=== PATIENT | female | born 1995 | race Caucasian/White ===

== ENCOUNTER 2020-08-11 16:27 | Emergency (ER) | payer BC, SELFPAY ==
--- NOTE | ~2020-08-11 | XR_ITS ---
EXAMINATION: XR ankle LT 2V DATE: 08/11/2020 17:04 INDICATION: Lateral left ankle swelling post injury TECHNIQUE: Anteroposterior and lateral views of the left ankle were obtained. COMPARISON: None. FINDINGS: Alignment is normal. No fracture. Joint spaces are well maintained. No ankle joint effusion. The so ft tissues are unremarkable. IMPRESSION: 1. . Negative left ankle radiographs. Reviewed, dictated and finalized at location [facility]. [employer]
[2020-08-11 16:32] VITALS: BP 150/89; PULSE 115; RESP 18; TEMP 36.3; O2SAT 100
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
--- NOTE | 2020-08-11 17:18 | PC.NURSE ---
xray done. waiting for final result. patient continues to ask for ice water. mother in room. advised to wait for results and .
--- NOTE | 2020-08-11 17:38 | PC.NURSE ---
resting on stretcher. xray (-) negative for fracture.
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
[2020-08-11 18:48] VITALS: BP 135/89; PULSE 90; RESP 18; TEMP 36.7; O2SAT 100
== END 2020-08-11 18:53 | disposition home or self-care (01) ==
LOC: ANHED 18:33
PROVIDERS: Emergency Provider Emergency Medicine
DX: S93.402A Sprain of unspecified ligament of left ankle, initial encounter (principal); S96.912A Strain of unspecified muscle and tendon at ankle and foot level, left foot, initial encounter; S90.512A Abrasion, left ankle, initial encounter; V48.4XXA Person boarding or alighting a car injured in noncollision transport accident, initial encounter
CPT/HCPCS: 73600; 99283

== ENCOUNTER 2023-01-23 08:23 | Emergency (ER) | payer OTHER, SELFPAY ==
[2023-01-23 08:34] VITALS: BP 139/83; PULSE 100; RESP 18; TEMP 36.9; O2SAT 99
--- NOTE | 2023-01-23 08:36 | ED.GENADULT ---
HPI - General Adult General Chief complaint: Upper Respiratory Infection Stated complaint: Sore Throat,Cough,Runny Nose Time Seen by Provider: 01/23/23 08:37 Source: patient Mode of arrival: ambulatory Limitations: no limitations History of Present Illness HPI narrative: 27-year-old female patient presents to the [facility] with complaints of cold symptoms for the past 2 days. Patient states she has had runny nose, nonproductive cough, stuffy nose and sore throat. Denies fevers, body aches or chills. Denies any abdominal pain, nausea, vomiting or diarrhea. Patient denies taking any new [id number] medications for her symptoms since they have started. Related Data Home Medications Medication Instructions Recorded Confirmed No Home Medications 01/23/23 01/23/23 Allergies Allergy/AdvReac Type Severity Reaction Status Date / Time No Known Allergies Allergy Verified 01/23/23 08:25 Review of Systems Review of Systems: CONSTITUTIONAL: Denies fever, chills, or sweats. EYES: Denies visual changes, redness, or discharge. ENT: Positive rhinorrhea, congestion, positive sore throat, negative otalgia. CARDIOVASCULAR: Denies chest pain, palpitations, or edema. RESPIRATORY: positive cough , denies dyspnea. GASTROINTESTINAL: Denies abdominal pain, nausea, vomiting, or diarrhea. GENITOURINARY: Denies dysuria or hematuria. SKIN: Denies rash or itching. MUSCULOSKELETAL: Denies back pain, joint pain, or myalgia. NEUROLOGIC: Denies headache, numbness, or weakness. PSYCHIATRIC: Denies anxiety or depression. [facility] Past Medical History Medical History Abrasion of ankle, left Healthy female adult Left ankle pain Surgical History Surgical History No history of previous surgery Social History Social History Smoking status: Never smoker Alcohol intake: never Substance use: never Substance use type: does not use Living arrangements: with family Occupation/Education: student Gender identity (if verbalized by the patient): Female Sexual Orientation (if Verbalized by the Patient): Straight or Heterosexual Spiritual care concerns: No Agree to blood products: Yes Comments At the time of my signature I agree with nursing past medical history, surgical, social, and family history. There is no relevant family history pertinent to the presenting complaint. Exam Narrative: GENERAL: Well-appearing, well-nourished, and in no acute distress. HEAD: Normocephalic, atraumatic. EYES: PERRLA and EOMI. ENT: Nares with erythema and edema noted bilaterally, no rhinorrhea or epistaxis. Mucous membranes moist. bilateral TMs are clear no erythema or foreign bodies the canal. Posterior pharynx with no erythema, tonsillar enlargement, exudates or lesions present. NECK: Supple. No lymphadenopathy CHEST: Clear to auscultation. No respiratory distress. HEART: Regular rate and rhythm. No murmur heard. Normal peripheral pulses. ABDOMEN: Soft, nontender, nondistended, normal active bowel sounds. EXTREMITIES: Normal range of motion. No edema. SKIN: Warm, dry, no rash. NEURO: No focal deficits. Alert and oriented x3. Course Course Level of Care: Express Care Visit Vital Signs Vital signs: Vital Signs Temperature 36.9 C 01/23/23 08:34 Pulse Rate 100 01/23/23 08:34 Respiratory Rate 18 01/23/23 08:34 Blood Pressure 139/83 01/23/23 08:34 Pulse Oximetry 99 01/23/23 08:34 Oxygen Delivery Room Air 01/23/23 08:34 Temperature 36.9 C 01/23/23 08:34 Pulse Rate 100 01/23/23 08:34 Respiratory Rate 18 01/23/23 08:34 Blood Pressure 139/83 01/23/23 08:34 Pulse Oximetry 99 01/23/23 08:34 Oxygen Delivery Room Air 01/23/23 08:34 Vital signs reviewed. The patient has been informed that they may have pre-hypertension
== END 2023-01-23 09:09 | disposition home or self-care (01) ==
PROVIDERS: Emergency Provider Nurse Practitioner Family
DX: J02.8 Acute pharyngitis due to other specified organisms (principal)
CPT/HCPCS: 87081; 87880; 99213; G0463